=== PATIENT | female | born 1990 | race Caucasian/White ===

== ENCOUNTER → 2018-04-11 | Outpatient (CLI) | payer BC ==
[2018-04-11 17:24] LABS: BASO % 0.5 % (0.0-1.0); EOS % 0.1 % (0.0-3.0); HEMATOCRIT 43.7 % (36.0-47.0); HEMOGLOBIN 14.3 g/dl (12.0-15.5); LYMPH # 2.8 10^3/uL (1.5-6.5); LYMPH % 37.2 % (24.0-44.0); MEAN CORPUSCULAR HEMOGLOBIN 28.4 pg (27.0-33.0); MEAN CORPUSCULAR HGB CONC 32.7 g/dl (32.0-36.5); MEAN CORPUSCULAR VOLUME 86.9 fl (80.0-96.0); MONO # 0.6 10^3/uL (0.0-0.8); MONO % 8.4 % (0.0-5.0); NEUTROPHILS % 53.7 % (36.0-66.0); PLATELET COUNT, AUTOMATED 286 10^3/uL (150-450); RED BLOOD COUNT 5.03 10^6/uL (4.00-5.40); WHITE BLOOD COUNT 7.4 10^3/uL (4.0-10.0)
[2018-04-11 17:41] LABS: ALBUMIN 4.7 GM/DL (3.2-5.2); ALT/SGPT 20 U/L (12-78); BILIRUBIN,TOTAL 0.5 MG/DL (0.2-1.0); BLOOD UREA NITROGEN 11 MG/DL (7-18); C REACTIVE PROTEIN QUANTITATIV < 0.30 MG/DL (0.00-0.30); CALCIUM LEVEL 9.3 MG/DL (8.5-10.1); CARBON DIOXIDE LEVEL 27 MEQ/L (21-32); CHLORIDE LEVEL 105 MEQ/L (98-107); FREE T4 1.39 NG/DL (0.76-1.46); GLOMERULAR FILTRATION RATE > 60.0 (>60); GLUCOSE, FASTING 86 MG/DL (70-100); POTASSIUM SERUM 3.8 MEQ/L (3.5-5.1); RHEUMATOID FACTOR QUANT < 10.0 IU/ML (<15.0); SODIUM LEVEL 140 MEQ/L (136-145); TOTAL PROTEIN 8.2 GM/DL (6.4-8.2); URIC ACID 2.3 MG/DL (2.6-6.0)
[2018-04-13 14:22] LABS: ANTINUCLEAR ANTIBODIES DIRECT Negative (Negative); Lyme Disease IgG/IgM Antibodie <0.91 ISR (0.00-0.90); Lyme Disease IgM Ab Quantitati <0.80 index (0.00-0.79)
== END ==
LOC: M WUC 14:45
PROVIDERS: ATTEND Physician Assistant
DX: L03.012 Cellulitis of left finger (principal); M25.541 Pain in joints of right hand; M25.542 Pain in joints of left hand

== ENCOUNTER → 2018-07-12 | Outpatient (REF) | payer BC ==
[2018-07-12 17:20] LABS: CHOLESTEROL RISK RATIO 2.507 (<5)
== END ==
LOC: M SFHCCLAY 09:37
PROVIDERS: ATTEND Family Medicine
DX: Z00.00 Encounter for general adult medical examination without abnormal findings (principal); Z13.220 Encounter for screening for lipoid disorders; Z13.1 Encounter for screening for diabetes mellitus

== ENCOUNTER → 2020-02-21 | Outpatient (REF) | payer BC ==
[2020-02-21 13:23] LABS: HEMATOCRIT 41.2 % (36.0-47.0); HEMOGLOBIN 13.4 g/dl (12.0-15.5); MEAN CORPUSCULAR HEMOGLOBIN 28.8 pg (27.0-33.0); MEAN CORPUSCULAR HGB CONC 32.5 g/dl (32.0-36.5); MEAN CORPUSCULAR VOLUME 88.4 fl (80.0-96.0); PLATELET COUNT, AUTOMATED 293 10^3/uL (150-450); RED BLOOD COUNT 4.66 10^6/uL (4.00-5.40)
[2020-02-21 14:43] LABS: HEPATITIS C VIRUS ABY INDEX 0.1 INDEX (<0.8); HIV 1&2 SCREEN CENTAUR NEGATIVE (NEGATIVE)
== END ==
LOC: M PLALAB 11:19
PROVIDERS: ATTEND Obstetrics & Gynecology
DX: Z34.91 Encounter for supervision of normal pregnancy, unspecified, first trimester (principal); Z3A.08 8 weeks gestation of pregnancy

== ENCOUNTER → 2020-03-20 | Outpatient (REF) | payer BC | LOC: M SFHCWAGY 13:35 | PROVIDERS: ATTEND Advanced Practice Midwife | DX: Z12.4 Encounter for screening for malignant neoplasm of cervix (principal) ==

== ENCOUNTER → 2020-05-06 | Outpatient (CLI) | payer BC ==
--- NOTE | 2020-05-06 15:37 | REP ---
INDICATION: ANATOMY. COMPARISON: None TECHNIQUE: Real-time sonographic evaluation of the gravid uterus performed. FINDINGS: Estimated gestational age is19 weeks 4 days, EDC 09/26/2020. Today's measurements indicate appropriate growth. Presentation: Variable Placenta posterior and fundal, grade 1, without evidence of placenta previa. The inferior tip of the placenta appears to be located approximately 2.0 cm from the internal cervical os. heart rate is recorded at 154 beats per minute. Amniotic fluid is subjectively normal. Closed cervical length is measured at 3.2 cm. Biometry chart: BPD: 42 mm, 18 weeks 6 days, 30th percentile. HC: 165 mm, 19 weeks 1 days, 38th percentile AC: 151 mm, 20 weeks 2 days, 67th percentile Femur length: 30 mm, 19 weeks 3 days, 45th percentile HC to AC ratio: 1.09, normal range 1.06-1.25. Estimated weight: 312g, 57th percentile. anatomy: Cranium: Grossly normal Lateral Ventricles/Choroid Plexus: Grossly normal Posterior Fossa/Cerebellum: Grossly normal Nose/lips/profile: Grossly normal Four chamber heart: Grossly normal Right ventricular outflow tract: Grossly normal Left ventricular outflow tract: Grossly normal Left-sided stomach: Grossly normal Kidneys: Grossly normal Bladder: Grossly normal Cord Insertion: Grossly normal 3 vessel cord: Grossly normal Spine: Grossly normal IMPRESSION: Viable single intrauterine gestation as above. <Electronically signed by Alok Min > 05/06/20 [id number]
== END ==
LOC: M WHC 10:04
PROVIDERS: ATTEND Advanced Practice Midwife
DX: Z34.02 Encounter for supervision of normal first pregnancy, second trimester (principal); Z3A.19 19 weeks gestation of pregnancy

== ENCOUNTER → 2020-06-16 | Outpatient (REF) | payer BC | LOC: M PLALAB 16:44 | PROVIDERS: ATTEND Obstetrics & Gynecology | DX: Z34.92 Encounter for supervision of normal pregnancy, unspecified, second trimester (principal); Z3A.25 25 weeks gestation of pregnancy ==

== ENCOUNTER → 2020-06-24 | Outpatient (REF) | payer BC ==
[2020-06-24 13:40] LABS: HEMATOCRIT 36.8 % (36.0-47.0); HEMOGLOBIN 11.6 g/dl (12.0-15.5); MEAN CORPUSCULAR HEMOGLOBIN 28.7 pg (27.0-33.0); MEAN CORPUSCULAR HGB CONC 31.5 g/dl (32.0-36.5); MEAN CORPUSCULAR VOLUME 91.1 fl (80.0-96.0); PLATELET COUNT, AUTOMATED 254 10^3/uL (150-450); RED BLOOD COUNT 4.04 10^6/uL (4.00-5.40); WHITE BLOOD COUNT 9.6 10^3/uL (4.0-10.0)
== END ==
LOC: M PLALAB 10:39
PROVIDERS: ATTEND Obstetrics & Gynecology
DX: Z36.89 Encounter for other specified antenatal screening (principal); Z3A.25 25 weeks gestation of pregnancy

== ENCOUNTER → 2020-07-01 | Outpatient (CLI) | payer BC | LOC: M LAB 08:07 | PROVIDERS: ATTEND Obstetrics & Gynecology | DX: O99.810 Abnormal glucose complicating pregnancy (principal); Z3A.00 Weeks of gestation of pregnancy not specified ==

== ENCOUNTER → 2020-08-27 | Outpatient (REF) | payer BC | LOC: M SFHCWAGY 14:58 | PROVIDERS: ATTEND Advanced Practice Midwife | DX: Z36.89 Encounter for other specified antenatal screening (principal); Z3A.35 35 weeks gestation of pregnancy ==

== ENCOUNTER 2020-09-09 22:51 | Inpatient (IN) | payer BC ==
[~2020-09-09] VITALS: Ht 152.4 cm; Wt 61.9 kg
[2020-09-09] MEDS ORDERED: FISH1000 PO (23:09)
[2020-09-09] MEDS ORDERED: PRENTAB9 PO (23:09)
[2020-09-09] MEDS ORDERED: VITA100T59 PO (23:09)
[2020-09-09] MEDS ORDERED: HOME MED LIST COMPLETE! XX SCH (23:10)
[2020-09-09 23:22] VITALS: BP 120/83
[2020-09-09] MEDS ORDERED: OXYTOCIN DRIP 30 UNITS in IV 1 EA IV PRN (23:30)
[2020-09-09] MEDS ORDERED: LIDOCAINE 1% MDV 20ML VIAL INFIL PRN (23:30)
[2020-09-09] MEDS ORDERED: miSOPROStol 50MCG 1/2 TABLET PO ONE (23:30)
[2020-09-10] VITALS (18 sets, daily range): BP systolic 103–142; BP diastolic 60–89
[2020-09-10 00:26] LABS: HEMATOCRIT 42.2 % (36.0-47.0); HEMOGLOBIN 13.9 g/dl (12.0-15.5); MEAN CORPUSCULAR HEMOGLOBIN 29.1 pg (27.0-33.0); MEAN CORPUSCULAR HGB CONC 32.9 g/dl (32.0-36.5); MEAN CORPUSCULAR VOLUME 88.5 fl (80.0-96.0); PLATELET COUNT, AUTOMATED 238 10^3/uL (150-450); RED BLOOD COUNT 4.77 10^6/uL (4.00-5.40); WHITE BLOOD COUNT 10.5 10^3/uL (4.0-10.0)
[2020-09-10] MEDS: miSOPROStol 50MCG 1/2 TABLET PO SCH ×3 (04:13→16:15)
--- NOTE | 2020-09-10 07:06 | HPE ---
HISTORY AND PHYSICAL DATE OF ADMISSION: 09/09/2020 HISTORY OF PRESENT ILLNESS: Rachel is a 29-year-old 1 para 0 at 37-4/7 week's gestation, estimated date of confinement (EDC) of 09/26/2020 based on last menstrual period, confirmed by first trimester ultrasound. She presents to labor and delivery today after being seen in the office and noted to have mid-range blood pressures. She did have preeclamptic labs and returned a spot urine of 0.4 which is indicative of preeclampsia, so the plan was made to schedule her for induction. She denies vaginal bleeding, leakage of fluid and regular painful contractions. The fetus has been active. Her care was initiated at [facility] in the first trimester. course complicated by A1 gestational diabetes and today's onset of preeclampsia. OBSTETRIC HISTORY: Primigravida. OBSTETRIC LABS: O-positive, antibody screen negative. Syphilis negative. Gonorrhea and chlamydia negative. Rubella immune. Hepatitis B surface antigen negative. Hepatitis C antibody nonreactive. HIV nonreactive. Gestational diabetic screening elevated at 160. Three-hour glucose tolerance test abnormal: Fasting 118, one hour 221, two hour 211 and three hour 204, and GBS is negative. PAST MEDICAL HISTORY: Noncontributory. SURGERIES: None. FAMILY HISTORY: Hypertension. SOCIAL HISTORY: The patient is . Her is at bedside. She is a nonsmoker. Denies alcohol and drug use. Denies any history of sexually transmitted infections, and denies history of abuse; physical, sexual and emotional. ALLERGIES: No known drug allergies. CURRENT MEDICATIONS: vitamin. OBJECTIVE (PHYSICAL EXAMINATION): Upon arrival, temperature 98.2, pulse 91, respirations 16, blood pressure 133/78. heart rate is 150 with moderate variability, positive accelerations, negative decelerations. She is david every 4-6 minutes; they are mild to palpation. Her abdomen is gravid; cephalic presentation with an estimated weight approximately 6.5 pounds. Sterile vaginal exam: 1 cm dilated, 75% effaced, -2 station, posterior and soft; scant show with the exam. ASSESSMENT: Intrauterine at 37-4/7 week's gestation; heart rate category 1, A1 gestational diabetes in excellent control, preeclampsia. PLAN: Admit the patient to labor and delivery. Routine laboratories. Saline lock. Regular diet at this time. Plan to start misoprostol 50 mcg p.o. every 4 hours for cervical ripening. Likely will also start IV Pitocin. May consider assist of rupture of membranes. The patient is desiring an epidural when she is in active labor. Risks, benefits and alternatives have been reviewed. All of her questions have been answered. She has been verbally consented for emergency surgery and blood products if necessary. I do anticipate cervical ripening.
[2020-09-10] MEDS ORDERED: OXYTOCIN DRIP 30 UNITS in IV 1 EA IV SCH (21:15)
[2020-09-10] MEDS ORDERED: OXYTOCIN 30 UNITS IN 0.9% NaCl 500ML IV BAG (J2590) As Ordered ONE (21:15)
[2020-09-10] MEDS: LR 1,000 ML IV SCH (21:39)
[2020-09-11] VITALS (56 sets, daily range): BP systolic 95–158; BP diastolic 51–102
[2020-09-11] MEDS: LR 1,000 ML IV SCH ×4 (08:36→17:55)
--- NOTE | 2020-09-11 09:21 | IPNPDOC ---
Text Note Date of Service The patient was seen on 09/11/20. NOTE Progress Reports contractions rating 5 Pitocin @ 14mu Cat I tracing UC 2-3 minutes x 60 seconds, moderate SVE 2/80/-2, slight posterior, moderate texture, old show Requesting epidural prior to AROM VS,Fishbone, I+O VS, Fishbone, I+O Vital Signs Date Time Temp Pulse Resp B/P (MAP) Pulse Ox O2 Delivery O2 Flow Rate FiO2 09/11/20 07:31 80 18 120/82 (95) Room Air 09/11/20 04:01 98.0 09/10/20 00:16 99 I&O- Last 24 Hours up to 6 AM 09/11/20 06:00 Intake Total 1000 ml Balance 1000 ml Shavonne Olsen CNM Sep 11, 2020 09:21
[2020-09-11] MEDS ORDERED: FENTANYL 2MCG/ML ROPIVACAINE 0.2% IN 0.9% NACL 100ML IVBAG As Ordered ONE (10:00)
[2020-09-11] MEDS: FENTANYL/ROPIVACAINE/NACL BAG 100 ML EPIDURAL SCH ×2 (10:24→20:50)
[2020-09-11] MEDS ORDERED: REFRIGERATOR IV KEYS XX PRN (10:50)
[2020-09-11] MEDS ORDERED: LACTATED RINGER'S 1000 ML IV PRN (10:50)
[2020-09-11] MEDS ORDERED: EPIDURAL COMMENT XX SCH (10:50)
[2020-09-11] MEDS ORDERED: ePHEDrine SULFATE 25 MG/5 ML(5MG/ML) SYRINGE IV PRN (10:50)
[2020-09-11] MEDS ORDERED: NALOXONE INJ 0.4MG/1ML VIAL (J2310 PER 1MG) IV PRN ×3 (10:50→17:35)
[2020-09-11] MEDS ORDERED: diphenhydrAMINE 50MG/ML VIAL (J1200) IV PRN ×2 (10:50→17:35)
[2020-09-11] MEDS ORDERED: ONDANSETRON 4MG/2ML VIAL IV PRN ×3 (10:50→18:25)
[2020-09-11] MEDS ORDERED: EPIDURAL/PCA KEYS XX PRN (10:50)
--- NOTE | 2020-09-11 16:17 | IPNPDOC ---
Text Note Date of Service The patient was seen on 09/11/20. NOTE Progress Feels weak , shaky. FH Cat II, tachycardia 170's-180's UC 2-3 minutes. Pitocin off. SVE unchanged, FSE placed Moderate amount clotted blood noted in bed prior to exam Dr Pace notified. VS,Fishbone, I+O VS, Fishbone, I+O Vital Signs Date Time Temp Pulse Resp B/P (MAP) Pulse Ox O2 Delivery O2 Flow Rate FiO2 09/11/20 15:25 94 107/71 (83) 09/11/20 15:10 98.4 16 Room Air 09/10/20 00:16 99 I&O- Last 24 Hours up to 6 AM 09/11/20 06:00 Intake Total 1000 ml Balance 1000 ml Shavonne Olsen CNM Sep 11, 2020 16:17
[2020-09-11] MEDS ORDERED: BICITRA 30ML SOLN UDC PO ONE (16:25)
[2020-09-11] MEDS ORDERED: AZITHROMYCIN INJ 500 MG, VIAL MATE ADAPTER 1 EACH in NS 250 ML IV ONE (16:25)
[2020-09-11] MEDS ORDERED: ceFAZolin SOD 2 GM in IV 1 EA IV ONE (16:25)
--- NOTE | 2020-09-11 16:36 | IPNPDOC ---
Text Note Date of Service The patient was seen on 09/11/20. NOTE Decision for section Rachel is a 29yo with SIUP at 37w6d undergoing IOL for pre-eclampsia withOUT severe features in the setting of A1GDM. I was called by EDILMA Olsen with concerns for possible placental abruption since fluid on SCE is noted to be frankly bloody with some medium sized clots observed, patient is shaking with lightheadedness, and there is tachycardia to 170's (variability maintained, no decels). Vitals signs remain wnl. Discussed my concerns with patient and she is agreeable to proceeding with PLTCS. Discussed consent form for surgery and possible blood transfusion to include all r/b/a and patient and I signed them together. NKDA- 2g IV anceph and 500mg IV azithromycin for surgical ppx Bicitra Repeat CBC obtained and pending OR team aware and preparing OR Will proceed as soon as team is ready Nubia Pace MD VS,Max, I+O VSMax I+O Vital Signs Date Time Temp Pulse Resp B/P (MAP) Pulse Ox O2 Delivery O2 Flow Rate FiO2 09/11/20 15:25 94 107/71 (83) 09/11/20 15:10 98.4 16 Room Air 09/10/20 00:16 99 I&O- Last 24 Hours up to 6 AM 09/11/20 06:00 Intake Total 1000 ml Balance 1000 ml Nubia Pace MD Sep 11, 2020 16:36
[2020-09-11] MEDS ORDERED: EPINEPHrine 1MG/10ML SYRINGE 1.5IN As Ordered ONE (16:41)
[2020-09-11] MEDS ORDERED: SODIUM BICARBONATE 8.4% INJ 50MEQ 50 ML VIAL As Ordered ONE (16:41)
[2020-09-11] MEDS ORDERED: LIDOCAINE PRES-FREE 2% 10ML AMP As Ordered ONE (16:41)
[2020-09-11 16:49] LABS: HEMATOCRIT 41.5 % (36.0-47.0); HEMOGLOBIN 13.4 g/dl (12.0-15.5); MEAN CORPUSCULAR HEMOGLOBIN 29.4 pg (27.0-33.0); MEAN CORPUSCULAR HGB CONC 32.3 g/dl (32.0-36.5); PLATELET COUNT, AUTOMATED 216 10^3/uL (150-450); RED BLOOD COUNT 4.56 10^6/uL (4.00-5.40); WHITE BLOOD COUNT 11.4 10^3/uL (4.0-10.0)
[2020-09-11] MEDS ORDERED: METOCLOPRAMIDE INJ 10MG/2ML VIAL (J2765 PER 1) As Ordered ONE (16:49)
[2020-09-11] MEDS ORDERED: ONDANSETRON 4MG/2ML VIAL As Ordered ONE ×2 (16:49→18:07)
[2020-09-11] MEDS ORDERED: OXYTOCIN 30 UNITS IN 0.9% NaCl 500ML IV BAG (J2590) As Ordered ONE (16:50)
[2020-09-11] MEDS ORDERED: MORPHINE PRES-FREE INJ 10 MG/10 ML VIAL (J2274) As Ordered ONE (16:57)
[2020-09-11] MEDS ORDERED: PHENYLephrine 500MCG 5ML (100MCG/ML) SYRINGE As Ordered ONE (16:58)
[2020-09-11 17:16] LABS: ALBUMIN 2.5 GM/DL (3.2-5.2); ALT/SGPT 17 U/L (12-78); BILIRUBIN,TOTAL 0.4 MG/DL (0.2-1.0); BLOOD UREA NITROGEN 6 MG/DL (7-18); CALCIUM LEVEL 8.6 MG/DL (8.5-10.1); CARBON DIOXIDE LEVEL 20 MEQ/L (21-32); CHLORIDE LEVEL 109 MEQ/L (98-107); GLOMERULAR FILTRATION RATE > 60.0 (>60); GLUCOSE, FASTING 107 MG/DL (70-100); POTASSIUM SERUM 3.8 MEQ/L (3.5-5.1); SODIUM LEVEL 140 MEQ/L (136-145); TOTAL PROTEIN 5.7 GM/DL (6.4-8.2)
[2020-09-11 17:18] LABS: CORD GAS ABE A -2.3; CORD GAS HCO3 A 25.4 MEQ/L; CORD GAS O2 SAT A 24.6 %; CORD GAS PCO2 A 57.4 mmHg; CORD GAS PH A 7.264 UNITS; CORD GAS PO2 A 13.5 mmHg; CORD GAS SBC A 21.1 MEQ/L; CORD GAS TCO2 A 27.2 MEQ/L
[2020-09-11 17:21] LABS: CORD GAS ABE V -3.5; CORD GAS HCO3 V 23.1 MEQ/L; CORD GAS O2 SAT V 58.6 %; CORD GAS PCO2 V 47.7 mmHg; CORD GAS PH V 7.303 UNITS; CORD GAS PO2 V 23.3 mmHg; CORD GAS SBC V 20.8 MEQ/L; CORD GAS TCO2 V 24.6 MEQ/L
[2020-09-11] MEDS ORDERED: NALBUPHINE HCL 10 MG/ML AMP (J2300) IV PRN ×2 (17:35→18:25)
[2020-09-11] MEDS ORDERED: METOCLOPRAMIDE INJ 10MG/2ML VIAL (J2765 PER 1) IV PRN (17:35)
[2020-09-11] MEDS ORDERED: SIMETHICONE 80MG CHEW TAB PO PRN (17:55)
[2020-09-11] MEDS ORDERED: PERCOCET 5MG/325MG TAB PO PRN ×2 (17:55)
[2020-09-11] MEDS ORDERED: RHOGAM 300 MCG (1500 IU) INJ (J2790) IM SCH (17:55)
[2020-09-11] MEDS ORDERED: MEASLES,MUMPS,RUBELLA VACCINE INJ (MMR-II) (90707) SC SCH (17:55)
[2020-09-11] MEDS ORDERED: MEPERIDINE INJ 25 MG/ML VIAL (J2175) As Ordered ONE (18:12)
[2020-09-11] MEDS ORDERED: LR 1,000 ML IV SCH (18:25)
[2020-09-11] MEDS ORDERED: fentaNYL 100 MCG/2 ML INJECTION (J3010) IV PRN (18:25)
[2020-09-11] MEDS ORDERED: oxyCODONE 5MG TAB PO PRN (18:25)
[2020-09-11] MEDS ORDERED: MEPERIDINE INJ 25 MG/ML VIAL (J2175) IV PRN (18:25)
[2020-09-11] MEDS: KETOROLAC 30 MG/ML 1ML VIAL IV SCH (20:44)
--- NOTE | 2020-09-11 20:56 | RO ---
OPERATIVE NOTE DATE OF OPERATION: 09/11/2020 PREOPERATIVE DIAGNOSIS: 1. Induction of labor, 37 weeks, 6 days single intrauterine with preeclampsia without severe features. 2. A1 GDM. 3. Concern for placental abruption with nonreassuring heart rate tracing. POSTOPERATIVE DIAGNOSIS: 1. Induction of labor, 37 weeks, 6 days single intrauterine with preeclampsia without severe features. 2. A1 GDM. 3. Concern for placental abruption with nonreassuring heart rate tracing. OPERATION PERFORMED: Primary low transverse section. SURGEON: Nubia Pace MD REGISTRATION SPECIALIST: manufacturing technology analystReena archibald CLINICAL SERVICE: Obstetrics. ANESTHESIA: epidural INDICATION FOR OPERATION: Rachel is a 29-year-old, G1, now P 1-0-0-1, who was undergoing induction of labor at 37 weeks, 6 days for preeclampsia without severe features in the setting of A1 GDM. I was called by EDILMA Olsen for concern when there was sustained tachycardia to the 170s and there was briseyda bleeding noted on cervical exam with blood clots. The patient was feeling lightheaded and weak and the situation was not resolving. I counseled the patient on the findings and my concern that she could be experiencing a placental abruption and she was amenable to proceeding to section. MATERIAL FORWARDED TO THE LAB FOR EXAMINATION: Cord gases: pH arterial 7.264, base excess negative 2.3, pH venous 7.303, base excess negative 3.5. DESCRIPTION OF FINDINGS: Male in cephalic presentation, OP, Apgars 9 and 9, weight 3010 gm or 6 lb, 10 oz. Normal appearing uterus. INFECTION CLASSIFICATION: 2. ESTIMATED BLOOD LOSS: 700 mL IV FLUIDS: 1300 mL of lactated Ringer's. URINE OUTPUT: 75 mL DESCRIPTION OF PROCEDURE: After obtaining informed consent, the patient was taken to the operating room. She had already received epidural anesthesia and had a Rubio catheter and bilateral sequential compression devices were in place. She was prepped and draped in normal sterile fashion in the dorsal supine position with a left lateral tilt. A timeout was performed to confirm patient name, date of , procedure and indication. The team was in agreement. She received two grams of IV Ancef and 500 mg of IV azithromycin prophylactically. Epidural anesthesia was found to be adequate using an Allis clamp. A Pfannenstiel skin incision was made with a scalpel, carried through to the underlying layer of fascia. The fascia was incised in the midline and the incision was extended laterally with Oneal scissors. Superior and inferior aspects of the fascial incision were grasped with Benson clamps, elevated and the underlying rectus muscles were dissected off bluntly and sharply. The peritoneum was entered digitally and the rectus muscles were in the midline. The peritoneal incision was extended superiorly and inferiorly with good visualization of the bladder. Mobius retractor was inserted. The vesicouterine peritoneum was identified, grasped with pickups and entered sharply with Metzenbaum scissors and the incision was extended laterally and the bladder flap was created digitally. The lower uterine segment was scored in a transverse fashion with a scalpel. The uterus was entered bluntly and the incision was extended with traction. Clear amniotic fluid was noted initially. The infant's head was elevated to the level of the incision. Fundal pressure was applied. The head was delivered atraumatically in ROP position. The anterior shoulder, posterior shoulder and corpus were delivered without difficulty. Nose and mouth were suctioned with bulb suction. Cord was clamped x2 and cut. Infant was handed off to the awaiting team. Core gases were obtained and as noted above. The placenta was then removed with fundal massage and traction on the cord. The uterus was left in situ, cleared of all clot and debris. The uterine incision was repaired with 0 Vicryl suture in a running locking fashion and a second layer of 0 Monocryl was used to close the hysterotomy incision in an imbricating fashion. The uterine incision was inspected. Hemostasis was noted. Gutters were cleared of all clots. The peritoneum was then closed using 3-0 Vicryl suture in a running fashion. The rectus muscles were well approximated, did not need any suture. The fascia was reapproximated with 0 Vicryl suture in a running fashion, unlocked. Subcutaneous tissue was copiously irrigated. Bella's fascia was reapproximated using 3-0 Vicryl suture in a running fashion. Skin edges were reapproximated using 3-0 Vicryl suture followed by a running subcuticular stitch using 4-0 Monocryl suture. The incision was cleaned using a wet lap, dried with a dry lap. Steri-Strips were applied in the usual fashion perpendicular to the Pfannenstiel incision and an Optifoam dressing was layered on top. The vagina was cleared of all blood clot without active bleeding noted. The fundus was firm at umbilicus. All counts were correct x2. The procedure was without complications. The patient tolerated the procedure well. She was taken to the recovery room on labor and delivery in stable condition. YRN
[2020-09-11] MEDS: DOCUSATE SODIUM 100MG CAPSULE PO SCH (21:00)
[2020-09-12 02:00] VITALS: BP 116/58
[2020-09-12] MEDS: KETOROLAC 30 MG/ML 1ML VIAL IV SCH ×4 (02:12→14:45)
[2020-09-12] MEDS: LR 1,000 ML IV SCH ×2 (02:13→09:55)
[2020-09-12 06:00] VITALS: BP 112/59
--- NOTE | 2020-09-12 07:33 | IPNPDOC ---
Text Note Date of Service The patient was seen on 09/12/20. NOTE PO #1 Reports adequate pain management. Continues to be shaky when attempting to sit or get out of bed. VSS, afebrile, normotensive Breasts soft, nipples intact Fundus firm, NT Dressing dry, intact Rubio draining clear yellow urine Lochia rubra scant without odor PO #1 CBC pending. Gradually increase activity and diet. VS,Fishbone, I+O VS, Fishbone, I+O Laboratory Tests 09/11/20 16:26 Vital Signs Date Time Temp Pulse Resp B/P (MAP) Pulse Ox O2 Delivery O2 Flow Rate FiO2 09/12/20 06:00 98.9 99 20 112/59 (76) 98 Room Air I&O- Last 24 Hours up to 6 AM 09/12/20 06:00 Intake Total 3408.4 ml Output Total 1950 ml Balance 1458.4 ml Shavonne Olsen CNM Sep 12, 2020 07:33
[2020-09-12 07:46] LABS: HEMATOCRIT 31.7 % (36.0-47.0); HEMOGLOBIN 10.3 g/dl (12.0-15.5); MEAN CORPUSCULAR HEMOGLOBIN 29.3 pg (27.0-33.0); MEAN CORPUSCULAR HGB CONC 32.5 g/dl (32.0-36.5); MEAN CORPUSCULAR VOLUME 90.3 fl (80.0-96.0); PLATELET COUNT, AUTOMATED 196 10^3/uL (150-450); RED BLOOD COUNT 3.51 10^6/uL (4.00-5.40); WHITE BLOOD COUNT 11.6 10^3/uL (4.0-10.0)
[2020-09-12] MEDS: FENTANYL/ROPIVACAINE/NACL BAG 100 ML EPIDURAL SCH (07:50)
[2020-09-12] MEDS: PRENATAL VITAMINS CHEWABLE TABLET PO SCH (08:40)
[2020-09-12] MEDS: DOCUSATE SODIUM 100MG CAPSULE PO SCH ×2 (08:40→20:31)
[2020-09-12 10:00] VITALS: BP 130/60
[2020-09-12 14:12] VITALS: BP 118/71
[2020-09-12] MEDS: IBUPROFEN 800 MG TAB PO SCH ×2 (16:29→23:58)
[2020-09-12 17:50] VITALS: BP 111/69
[2020-09-12 22:00] VITALS: BP 111/66
[2020-09-13 02:00] VITALS: BP 112/63
[2020-09-13 06:02] VITALS: BP 121/80
[2020-09-13] MEDS: IBUPROFEN 800 MG TAB PO SCH (07:53)
[2020-09-13] MEDS: DOCUSATE SODIUM 100MG CAPSULE PO SCH (07:53)
[2020-09-13] MEDS: PRENATAL VITAMINS CHEWABLE TABLET PO SCH (07:55)
--- NOTE | 2020-09-13 12:42 | IPNPDOC ---
Progress Note Date of Service: Sep 13, 2020 Day#: 2 Progress Note POD 2 SUBJECT: Rachel is a 29yo [id number] s/p uncomplicated PLTCS at 37w6d on 09/11, doing well postop day # 2. She was undergoing IOL for pre-eclampsia withOUT severe features in the setting of A1GDM and there were concerns for placental abruption with vaginal bleeding, tachycardia and maternal lightheadedness. Pt doing well since surgery- she has been ambulating, voiding spontaneously without issue and tolerating regular diet. Reports lochia is like a normal period. No f/c/n/v/CP/SOB. No BENSON/vision changes/upper abdominal pain. Pain well controlled with motrin/percocet. OBJECTIVE: VITAL SIGNS: Within normal limits, afebrile. Alert and oriented times three. Abdomen: Fundus firm at U-2. Soft, NTTP. Pfannenstiel incision covered by dry/clean optifoam dressing with no strike through. Extremities: no edema of BLE, no pain with palpation of calves Labs: pre-op H/H: 13.9/42.4 post-op H/H: 10.3/31.7 ASSESSMENT: Rachel is a 29yo [id number] s/p uncomplicated PLTCS at 37w6d on 09/11, doing well postop day # 2. She was undergoing IOL for pre-eclampsia withOUT severe features in the setting of A1GDM and there were concerns for placental abruption. Vitals within normal limits, afebrile, hemodynamically stable with no evidence of infection. No s/sx of worsening pre-E. PLAN: 1. Routine care. Discussed possible discharge today. Pt wanted to consider further and talk to her . May desire discharge later today 2. Motrin for pain TID with prn percocet. Colace for bowel regimen. 3. Encourage breast feeding and ambulation. 4. Regular diet 5. Discussed return precautions at length 6. Follow up visit in [address] Pace for incision check 7. No heavy lifting, vaginal rest 6 weeks Nubia Pace MD VS, I&O, 24H, Fishbone Vital Signs/I&O Vital Signs Date Time Temp Pulse Resp B/P (MAP) Pulse Ox O2 Delivery O2 Flow Rate FiO2 09/13/20 07:45 Room Air 8/1/21 06:02 97.6 88 16 121/80 (28) 100 I&O- Last 24 Hours up to 6 AM 09/13/20 06:00 Output Total 400 ml Balance -400 ml Nubia Pace MD Sep 13, 2020 12:42
[2020-09-13] MEDS ORDERED: IBUP80TA PO (12:43)
[2020-09-13] MEDS ORDERED: PERCOCET PO (12:43)
[2020-09-13] MEDS ORDERED: DOK1CAP7 PO (12:43)
--- NOTE | 2020-09-13 14:09 | DS.PDOC ---
Discharge Summary General Date of Admission Sep 09, 2020 at 22:51 Date of Discharge 09/13/20 Discharge Summary PROCEDURES PERFORMED DURING STAY: primary low transverse section ADMITTING DIAGNOSES: 1. Term SIUP with pre-eclampsia withOUT severe features 2. A1GDM DISCHARGE DIAGNOSES: 1. Term SIUP with pre-eclampsia withOUT severe features 2. A1GDM 3. Concern for placental abruption, delivered via PLTCS COMPLICATIONS/CHIEF COMPLAINT: IOL. Rachel is a 29yo [id number] s/p uncomplicated PLTCS at 37w6d on 09/11, doing well postop day # 2. She was undergoing IOL for pre-eclampsia withOUT severe features in the setting of A1GDM and there were concerns for placental abruption. She had a benign post-op course and at time of discharge vitals are within normal limits, she is afebrile, hemodynamically stable with no evidence of infection. No s/sx of worsening pre-E. DISCHARGE MEDICATIONS: Please see below. ALLERGIES: Please see below. PHYSICAL EXAMINATION ON DISCHARGE: VITAL SIGNS: Within normal limits, afebrile. Alert and oriented times three. Abdomen: Fundus firm at U-2. Soft, NTTP. Pfannenstiel incision covered by dry/clean optifoam dressing with no strike through. Extremities: no edema of BLE, no pain with palpation of calves LABORATORY DATA: Please see below. pre-op H/H: 13.9/42.4 post-op H/H: 10.3/31.7 DISPOSITION: home DISCHARGE INSTRUCTIONS: 1. Discharge to home 2. Motrin for pain TID with prn percocet. Colace for bowel regimen. 3. Encourage breast feeding and ambulation. 4. Regular diet 5. Discussed return precautions at length 6. Follow up visit in [address] Pace for incision check 7. No heavy lifting, vaginal rest 6 weeks DISCHARGE CONDITION: Stable TIME SPENT ON DISCHARGE: 20 minutes. Vital Signs/I&Os Vital Signs Date Time Temp Pulse Resp B/P (MAP) Pulse Ox O2 Delivery O2 Flow Rate FiO2 09/13/20 07:45 Room Air 09/13/20 06:02 97.6 88 16 121/80 (94) 100 I&O- Last 24 Hours up to 6 AM 09/13/20 06:00 Output Total 400 ml Balance -400 ml Discharge Medications Scheduled Ascorbic Acid (Vitamin C) 100 Mg Tablet, 1 TAB PO DAILY, (Reported) Docusate Sodium (Dok) 100 Mg Capsule, 100 MG PO BID Ibuprofen (Ibuprofen) 800 Mg Tablet, 800 MG PO Q8H Weston-3 Fatty Acids/Fish Oil (Fish Oil 1,000 mg Capsule) 1 Each Capsule, 1 CAP PO DAILY, (Reported) No.137/Iron/Folic Acd ( Vitamin Tablet) 1 Each Tablet, 1 TAB PO DAILY, (Reported) Scheduled PRN Oxycodone/Acetaminophen (Oxycodone-Acetaminophen 5-325) 1 Each Tablet, 2 TAB PO Q6H PRN for SEVERE PAIN (PS 8-10) Allergies Coded Allergies: No Known Allergies (Unverified , 09/09/20) Nubia Pace MD Sep 13, 2020 14:09
== END 2020-09-13 15:30 | disposition home or self-care (01) | DRG 540 ==
LOC: M LDI 22:51 → M OBS 09-11 20:01
PROVIDERS: ADMIT Advanced Practice Midwife; ATTEND Obstetrics & Gynecology
PROC: 3E0P7GC Introduction of Other Therapeutic Substance into Female Reproductive, Via Natural or Artificial Opening (ICD-10-PCS; 2020-09-09)
PROC: 10D00Z1 Extraction of Products of Conception, Low, Open Approach (ICD-10-PCS; principal; 2020-09-11 16:30)
DX: O14.04 Mild to moderate pre-eclampsia, complicating childbirth (principal); Z3A.37 37 weeks gestation of pregnancy; Z37.0 Single live birth; O24.420 Gestational diabetes mellitus in childbirth, diet controlled; O76 Abnormality in fetal heart rate and rhythm complicating labor and delivery; O45.93 Premature separation of placenta, unspecified, third trimester

== ENCOUNTER → 2020-09-09 | Outpatient (REF) | payer BC ==
[~2020-09-09] MED LIST: FISH1000 PO; PRENTAB9 PO; VITA100T59 PO
== END ==
LOC: M PLALAB 10:39
PROVIDERS: ATTEND Obstetrics & Gynecology
DX: O24.419 Gestational diabetes mellitus in pregnancy, unspecified control (principal); Z3A.00 Weeks of gestation of pregnancy not specified

== ENCOUNTER → 2020-09-09 | Outpatient (CLI) | payer BC ==
[2020-09-09 13:17] LABS: HEMATOCRIT 44.5 % (36.0-47.0); HEMOGLOBIN 14.4 g/dl (12.0-15.5); MEAN CORPUSCULAR HEMOGLOBIN 29.8 pg (27.0-33.0); MEAN CORPUSCULAR HGB CONC 32.4 g/dl (32.0-36.5); MEAN CORPUSCULAR VOLUME 91.9 fl (80.0-96.0); PLATELET COUNT, AUTOMATED 243 10^3/uL (150-450); RED BLOOD COUNT 4.84 10^6/uL (4.00-5.40)
[2020-09-09 13:45] LABS: CREATININE,RANDOM URINE 26.8 MG/DL; TOTAL PROTEIN,RANDOM URINE 10.9 MG/DL (0.0-12.0)
[2020-09-09 13:49] LABS: ALBUMIN 3.1 GM/DL (3.2-5.2); ALT/SGPT 22 U/L (12-78); BILIRUBIN,TOTAL 0.2 MG/DL (0.2-1.0); BLOOD UREA NITROGEN 9 MG/DL (7-18); CARBON DIOXIDE LEVEL 26 MEQ/L (21-32); CHLORIDE LEVEL 106 MEQ/L (98-107); CREATININE FOR GFR 0.47 MG/DL (0.55-1.30); GLOMERULAR FILTRATION RATE > 60.0 (>60); GLUCOSE, FASTING 119 MG/DL (70-100); POTASSIUM SERUM 3.6 MEQ/L (3.5-5.1); SODIUM LEVEL 139 MEQ/L (136-145); TOTAL PROTEIN 6.7 GM/DL (6.4-8.2)
== END ==
LOC: M PLALAB 10:55
PROVIDERS: ATTEND Obstetrics & Gynecology
DX: I10 Essential (primary) hypertension (principal)

== ENCOUNTER 2020-10-02 18:33 | Emergency (ER) | payer BC ==
[~2020-10-02] VITALS: Ht 152.4 cm; Wt 54.0 kg
[~2020-10-02 18:33] MED LIST changes: +DOK1CAP4 PO; +IBUP80TA PO; +PERCOCET PO
[2020-10-02 18:34] VITALS: BP 157/92
== END 2020-10-02 23:04 | disposition left against medical advice (07) ==
LOC: M ED 18:33
DX: Z53.29 Procedure and treatment not carried out because of patient's decision for other reasons (principal)

== ENCOUNTER 2020-10-25 10:34 | Emergency (ER) | payer BC ==
[~2020-10-25] VITALS: Ht 152.4 cm; Wt 52.1 kg
[2020-10-25 12:21] LABS: BASO # 0.1 10^3/uL (0.0-0.2); BASO % 0.8 % (0.0-1.0); EOS % 0.6 % (0.0-3.0); HEMATOCRIT 44.1 % (36.0-47.0); HEMOGLOBIN 14.2 g/dl (12.0-15.5); LYMPH % 30.7 % (24.0-44.0); MEAN CORPUSCULAR HEMOGLOBIN 28.1 pg (27.0-33.0); MEAN CORPUSCULAR HGB CONC 32.2 g/dl (32.0-36.5); MEAN CORPUSCULAR VOLUME 87.2 fl (80.0-96.0); MONO # 0.3 10^3/uL (0.0-0.8); MONO % 4.4 % (2.0-8.0); NEUTROPHILS # 4.2 10^3/uL (1.5-8.5); NEUTROPHILS % 63.3 % (36.0-66.0); PLATELET COUNT, AUTOMATED 328 10^3/uL (150-450); RED BLOOD COUNT 5.06 10^6/uL (4.00-5.40); WHITE BLOOD COUNT 6.6 10^3/uL (4.0-10.0)
[2020-10-25 12:40] LABS: BLOOD UREA NITROGEN 14 MG/DL (7-18); CALCIUM LEVEL 9.4 MG/DL (8.5-10.1); CARBON DIOXIDE LEVEL 27 MEQ/L (21-32); CHLORIDE LEVEL 106 MEQ/L (98-107); CREATININE FOR GFR 0.63 MG/DL (0.55-1.30); GLOMERULAR FILTRATION RATE > 60.0 (>60); GLUCOSE, FASTING 99 MG/DL (70-100); SODIUM LEVEL 140 MEQ/L (136-145)
[2020-10-25 13:41] LABS: HCG, SERUM QUANTITATIVE < 1.0 MIU/ML
[2020-10-25 14:13] LABS: THYROID STIMULATING HORMONE 0.785 uIU/ML (0.358-3.740)
[2020-10-25] MEDS ORDERED: IBUPROFEN 800 MG TAB PO ONE (14:55)
[2020-10-25 15:09] VITALS: BP 134/89
[2020-10-25 16:15] LABS: GC DNA AMPLIFICATION NEGATIVE (NEGATIVE)
== END 2020-10-25 15:21 | disposition home or self-care (01) ==
LOC: M ED 10:34
DX: N93.9 Abnormal uterine and vaginal bleeding, unspecified (principal); R51.9 Headache, unspecified

== ENCOUNTER → 2021-01-18 | Outpatient (REF) | payer BC ==
[2021-01-18 16:47] LABS: HEMATOCRIT 45.3 % (36.0-47.0); HEMOGLOBIN 14.5 g/dl (12.0-15.5); MEAN CORPUSCULAR HEMOGLOBIN 27.5 pg (27.0-33.0); PLATELET COUNT, AUTOMATED 329 10^3/uL (150-450); RED BLOOD COUNT 5.27 10^6/uL (4.00-5.40); WHITE BLOOD COUNT 4.8 10^3/uL (4.0-10.0)
[2021-01-18 17:51] LABS: FREE T4 1.19 NG/DL (0.76-1.46); THYROID STIMULATING HORMONE 1.07 uIU/ML (0.358-3.740)
[2021-01-18 19:30] LABS: HEMOGLOBIN A1c 5.4 %
== END ==
LOC: M SFHCCLAY 11:12
PROVIDERS: ATTEND Family Medicine
DX: R00.0 Tachycardia, unspecified (principal); Z86.32 Personal history of gestational diabetes